=== PATIENT | female | born 1985 | race Hispanic/Latino ===

== ENCOUNTER 2022-03-06 14:45 | Emergency (ER) | payer BC, OTHER ==
[~2022-03-06] VITALS: Ht 154.9 cm; Wt 62.6 kg
[2022-03-06] MEDS ORDERED: BEBTELOVIMAB 175 MG INJ IV ONE (15:15)
== END 2022-03-06 15:37 | disposition home or self-care (01) ==
LOC: ER 14:55
DX: R50.9 Fever, unspecified (principal); U07.1 COVID-19
CPT/HCPCS: 99283